=== PATIENT | female | born 1955 | race Caucasian/White ===

== ENCOUNTER 2018-02-14 18:47 | Emergency (ER) | payer MEDICARE ==
[~2018-02-14] VITALS: Ht 160 cm; Wt 72.6 kg
[~2018-02-14 18:47] MED LIST: AMIT50; ASCO500 PO; ASPI325; B Complex #11 EACH PO; BIOGEST PO; BUSP5 PO; CARV25; CHOL10002 PO; CIPR500 PO; COLE625; CRUTCH2 USE; CYCL10 PO; Calcium Magnes1 EACH PO; DULO30 PO; DULO60 PO; ERGO400 PO; ERYT.5TO OS; ESTR.625 PO; ESTR.9; FISH OIL 1,2001 EACH PO; FISH1000 PO; GABA300 PO; GABA600 PO; HYDACE5 PO; Humalog100 UNIT/1 SC; INSULANI SC; INSULIN PUMP; KETO.5OPSO LEFTEYE; LEVSOD75 PO; LORA1 PO; MAGCHL64ER PO; METF500 PO; METR500 PO; NAPR500 PO; NEBI10 PO; Norco 10-325 T1 EACH PO; OMEP20ER PO; OXYACE5T PO; OXYC5; Omeprazole20 M1 PO; PENNAL50 PO; PRAV20 PO; PREG75 PO; QUIN10 PO; QUIN5; QUIN5 PO; RANI150; RXLORA1 PO; TUMS200 MG PO; Ultram50 MG PO; VENL75ER; VITAMIN B122500 MC1 PO
[2018-02-14 19:13] LABS: PCO2 Venous 36.8 mmHg (38-42); PO2 Venous 66.2 mmHg (38-42)
[2018-02-14 19:14] LABS: BASOPHILS ABSOLUTE AUTO 0.06 K/mm3 (0.00-0.23); BASOPHILS PERCENT AUTO 1 % (0-2); EOSINOPHILS ABSOLUTE AUTO 0.14 K/mm3 (0.00-0.68); EOSINOPHILS PERCENT AUTO 1 % (0-6); Hematocrit 41.4 % (33.0-51.0); Hemoglobin 13.8 g/dL (11.5-16.0); IMMATURE GRAN ABSOLUTE AUTO 0.04 K/mm3 (0.00-0.10); IMMATURE GRAN PERCENT AUTO 0 % (0-1); LYMPHOCYTES ABSOLUTE AUTO 1.97 K/mm3 (0.84-5.20); LYMPHOCYTES PERCENT AUTO 19 % (21-46); MONOCYTES ABSOLUTE AUTO 0.59 K/mm3 (0.16-1.47); MONOCYTES PERCENT AUTO 6 % (4-13); Mean Corpuscular HGB 29.9 pg (26.0-34.0); Mean Corpuscular HGB Conc 33.3 g/dL (31.5-36.5); Mean Corpuscular Volume 90 fL (80-100); Mean Platelet Volume 11.1 fL (9.1-12.4); NEUTROPHILS ABSOLUTE AUTO 7.71 K/mm3 (1.96-9.15); NEUTROPHILS PERCENT AUTO 73 % (41-73); Platelet Count 267 K/mm3 (150-400); RDW Coefficient Variation 12.5 % (11.7-14.2); RDW Standard Deviation 41.1 fL (35.1-46.3); Red Blood Cell Count 4.61 M/mm3 (3.80-5.20); White Blood Cell Count 10.51 K/mm3 (4.00-11.30)
[2018-02-14 19:31] LABS: Albumin, Blood 4.1 g/dL (3.4-5.0); Bilirubin, Total 0.6 mg/dL (0.1-1.0); Bun/Creatinine Ratio 20.2 (12.0-20.0); Calcium, Blood 9.6 mg/dL (8.5-10.1); Creatinine, Blood 1.04 mg/dL (0.40-1.00); Potassium, Blood 4.3 mmol/L (3.5-5.5); Total Protein, Blood 8.1 g/dL (6.4-8.2)
[2018-02-14] MEDS ORDERED: Bystolic20 MG PO (20:30)
[2018-02-14 21:05] LABS: Source, Urine Clean Catch
[2018-02-14 21:10] LABS: Bilirubin, Urine Neg (Neg); Blood, Urine Neg (Neg); Glucose Qualitative, Urine 4+ (Neg); Ketones, Urine Neg (Neg); Leukocyte Esterase, Urine Neg (Neg); Nitrite, Urine Neg (Neg); Protein, Urine Neg (Neg); Specific Gravity, Urine 1.005 (1.003-1.022); Urobilinogen, Urine NORM (Normal); pH, Urine 6.5 (5.0-8.0)
[2018-02-14 21:16] LABS: Appearance, Urine Clear (Clear); Color, Urine Yellow (P-Yellow)
== END 2018-02-14 23:05 | disposition home or self-care (01) ==
LOC: ER 18:47
PROVIDERS: Physician Assistant
DX: E11.65 Type 2 diabetes mellitus with hyperglycemia (principal); Z88.6 Allergy status to analgesic agent; Z88.2 Allergy status to sulfonamides; Z88.5 Allergy status to narcotic agent; Z91.040 Latex allergy status; Z79.899 Other long term (current) drug therapy; Z79.4 Long term (current) use of insulin
CPT/HCPCS: 36415; 80053; 81003; 82803; 82947; 85025; 96374; 99284; J2405; J7030

== ENCOUNTER 2018-05-13 22:28 | Emergency (ER) | payer MEDICARE ==
[~2018-05-13 22:28] MED LIST changes: +Bystolic20 MG PO
== END 2018-05-13 22:50 | disposition left against medical advice (07) ==
LOC: ER 22:28
DX: Z53.21 Procedure and treatment not carried out due to patient leaving prior to being seen by health care provider (principal)

== ENCOUNTER → 2021-07-15 | Outpatient (CLI) | payer MEDICARE, OTHER ==
[~2021-07-15] MED LIST changes: +ATEN50 PO; +ATOR80 PO; +Buspirone HCl15 MG PO; +GALZIN25 MG PO; +MAGNESIUM OXID500 MG PO; +Norco 5-325 Ta1 EACH PO
== END | disposition home or self-care (01) ==
LOC: LAB 16:00 → LAB SHORT 16:00
DX: B34.9 Viral infection, unspecified (principal)
CPT/HCPCS: 87081

== ENCOUNTER 2021-09-13 09:15 | Emergency (ER) | payer MEDICARE, OTHER ==
[~2021-09-13] VITALS: Ht 154.9 cm; Wt 77.1 kg
[2021-09-13 10:29] LABS: Source, Urine Clean Catch
[2021-09-13 10:35] LABS: BASOPHILS ABSOLUTE AUTO 0.07 K/mm3 (0.00-0.23); BASOPHILS PERCENT AUTO 1 % (0-2); Base Excess Venous 4.6 mmol/L; Bicarbonate Venous 27.6 mmol/L (24.0-30.0); EOSINOPHILS PERCENT AUTO 3 % (0-6); Hematocrit 38.6 % (33.0-51.0); Hemoglobin 12.6 g/dL (11.5-16.0); IMMATURE GRAN ABSOLUTE AUTO 0.04 K/mm3 (0.00-0.10); IMMATURE GRAN PERCENT AUTO 0 % (0-1); LYMPHOCYTES ABSOLUTE AUTO 2.54 K/mm3 (0.84-5.20); LYMPHOCYTES PERCENT AUTO 24 % (21-46); MONOCYTES PERCENT AUTO 6 % (4-13); Mean Corpuscular HGB 29.1 pg (26.0-34.0); Mean Corpuscular HGB Conc 32.6 g/dL (31.5-36.5); Mean Corpuscular Volume 89 fL (80-100); Mean Platelet Volume 11.1 fL (9.1-12.4); NEUTROPHILS ABSOLUTE AUTO 6.95 K/mm3 (1.96-9.15); NEUTROPHILS PERCENT AUTO 66 % (41-73); PCO2 Venous 48.4 mmHg (38-42); PO2 Venous 63.5 mmHg (38-42); Platelet Count 250 K/mm3 (150-400); RDW Coefficient Variation 12.8 % (11.7-14.2); RDW Standard Deviation 42.1 fL (35.1-46.3); Red Blood Cell Count 4.33 M/mm3 (3.80-5.20); pH Blood Venous 7.39 (7.34-7.37)
[2021-09-13 10:38] LABS: Appearance, Urine Clear (Clear); Bilirubin, Urine Neg (Neg); Blood, Urine Neg (Neg); Color, Urine Yellow (P-Yellow); Glucose Qualitative, Urine 4+ (Neg); Ketones, Urine Neg (Neg); Leukocyte Esterase, Urine Neg (Neg); Nitrite, Urine Neg (Neg); Protein, Urine Neg (Neg); Specific Gravity, Urine 1.005 (1.003-1.022); Urobilinogen, Urine NORM (Normal); pH, Urine 6.5 (5.0-8.0)
[2021-09-13 11:01] LABS: Alanine Aminotransfer (ALT/SGP 49 U/L (12-78); Albumin, Blood 3.5 g/dL (3.4-5.0); Alk Phos 110 U/L (50-136); Anion Gap 6 mmol/L (6-16); Aspartate Aminotrans (AST/SGOT 31 U/L (12-37); Beta-hydroxybutyrate 1.2 mg/dL (0.2-2.8); Bilirubin, Total 0.7 mg/dL (0.1-1.0); Blood Urea Nitrogen 21 mg/dL (8-24); Bun/Creatinine Ratio 23.6 (12.0-20.0); CO2, Blood 29 mmol/L (21-32); Calcium, Blood 9.9 mg/dL (8.5-10.1); Chloride, Blood 97 mmol/L (98-108); Creatinine, Blood 0.89 mg/dL (0.40-1.00); Globulin, Blood 3.6 g/dL (2.2-4.0); Glomerular Filtration Rate >60 (60-); Glucose, Blood 392 mg/dL (70-99); Potassium, Blood 4.5 mmol/L (3.5-5.5); Sodium, Blood 132 mmol/L (136-145); Total Protein, Blood 7.1 g/dL (6.4-8.2)
== END 2021-09-13 11:37 | disposition home or self-care (01) ==
LOC: ER 09:15
PROVIDERS: Physician Assistant
DX: E11.65 Type 2 diabetes mellitus with hyperglycemia (principal); Z88.6 Allergy status to analgesic agent; Z88.2 Allergy status to sulfonamides; Z88.5 Allergy status to narcotic agent; Z91.040 Latex allergy status; Z79.899 Other long term (current) drug therapy; Z79.4 Long term (current) use of insulin; G47.30 Sleep apnea, unspecified; I10 Essential (primary) hypertension
CPT/HCPCS: 36415; 80053; 81003; 82010; 82803; 82947; 85025; 93005; 93010; 96374; 99285-25; J2405; J7030

== ENCOUNTER → 2021-11-23 | Outpatient (CLI) | payer MEDICARE, OTHER ==
[2021-11-23 16:29] LABS: Sodium, Urine 53 mmol/L (20-110)
[2021-11-23 16:33] LABS: Microalbumin, Urine Quant. <5.000 mg/L (0.000-20.000); Protein, Urine Quantitative <5.0 mg/dL (0.0-11.9)
== END | disposition home or self-care (01) ==
LOC: LAB SHORT 14:26 → LAB FUT 11-21 13:10
PROVIDERS: Internal Medicine Nephrology
DX: N18.30 Chronic kidney disease, stage 3 unspecified (principal); D63.1 Anemia in chronic kidney disease; N25.81 Secondary hyperparathyroidism of renal origin; E55.9 Vitamin D deficiency, unspecified; E78.00 Pure hypercholesterolemia, unspecified; R76.9 Abnormal immunological finding in serum, unspecified; R94.5 Abnormal results of liver function studies; R94.6 Abnormal results of thyroid function studies; D51.8 Other vitamin B12 deficiency anemias; D52.8 Other folate deficiency anemias; D50.9 Iron deficiency anemia, unspecified
CPT/HCPCS: 81050; 82043; 84156; 84300

== ENCOUNTER 2022-03-15 06:21 | Day surgery (SDC) | payer MEDICARE, OTHER ==
[~2022-03-15] VITALS: Ht 157.5 cm; Wt 79.1 kg
[~2022-03-15 06:21] MED LIST changes: +Crestor20 MG PO; +LATA.005SO BOTHEYES
[2022-03-20] MEDS ORDERED: GABA300 PO (11:25)
[2022-03-20] MEDS ORDERED: QUIN10 PO (11:25)
== END 2022-03-15 08:09 | disposition home or self-care (01) ==
LOC: ORSCSDS 06:21
PROVIDERS: Ophthalmology
PROC: 08RJ3JZ Replacement of Right Lens with Synthetic Substitute, Percutaneous Approach (ICD-10-PCS; principal; 2022-03-15 07:30)
DX: H25.11 Age-related nuclear cataract, right eye (principal); E11.9 Type 2 diabetes mellitus without complications; K21.9 Gastro-esophageal reflux disease without esophagitis; E78.5 Hyperlipidemia, unspecified; E03.9 Hypothyroidism, unspecified; H40.9 Unspecified glaucoma; Z79.4 Long term (current) use of insulin; Z79.899 Other long term (current) drug therapy
CPT/HCPCS: 82947; J2001; J2250; J3010; J3301; J7040; V2632

== ENCOUNTER 2022-03-29 06:24 | Day surgery (SDC) | payer MEDICARE, OTHER ==
[~2022-03-29] VITALS: Ht 157.5 cm; Wt 79.4 kg
--- NOTE | 2022-03-29 06:45 | NUR ---
03/29/22 0645 Alicia Scanlon @ 0636, MARÍA ELENA @ 0646
== END 2022-03-29 08:10 | disposition home or self-care (01) ==
LOC: ORSCSDS 06:24
PROVIDERS: Ophthalmology
PROC: 08RK3JZ Replacement of Left Lens with Synthetic Substitute, Percutaneous Approach (ICD-10-PCS; principal; 2022-03-29 07:30)
DX: H25.12 Age-related nuclear cataract, left eye (principal); Z96.1 Presence of intraocular lens; I10 Essential (primary) hypertension; I42.9 Cardiomyopathy, unspecified; K21.9 Gastro-esophageal reflux disease without esophagitis; E10.9 Type 1 diabetes mellitus without complications; Z96.41 Presence of insulin pump (external) (internal); Z79.4 Long term (current) use of insulin; E78.5 Hyperlipidemia, unspecified; Z79.899 Other long term (current) drug therapy
CPT/HCPCS: 82947; J2001; J2250; J3010; J3301; J7040; V2632

== ENCOUNTER 2023-02-13 14:19 | Inpatient (IN) | payer MEDICARE, OTHER ==
[~2023-02-13] VITALS: Ht 157.5 cm; Wt 84.3 kg
[2023-02-13] VITALS (17 sets, daily range): BP systolic 89–121; BP diastolic 48–82
[2023-02-13 14:57] LABS: Base Excess Venous -2.1 mmol/L; Bicarbonate Venous 22.3 mmol/L (24.0-30.0); PCO2 Venous 42.8 mmHg (38-42); pH Blood Venous 7.35 (7.34-7.37)
[2023-02-13 15:09] LABS: BASOPHILS ABSOLUTE AUTO 0.03 K/mm3 (0.00-0.23); BASOPHILS PERCENT AUTO 0 % (0-2); EOSINOPHILS ABSOLUTE AUTO 0.01 K/mm3 (0.00-0.68); EOSINOPHILS PERCENT AUTO 0 % (0-6); IMMATURE GRAN ABSOLUTE AUTO 0.06 K/mm3 (0.00-0.10); IMMATURE GRAN PERCENT AUTO 1 % (0-1); LYMPHOCYTES ABSOLUTE AUTO 0.74 K/mm3 (0.84-5.20); LYMPHOCYTES PERCENT AUTO 7 % (21-46); MONOCYTES ABSOLUTE AUTO 0.68 K/mm3 (0.16-1.47); MONOCYTES PERCENT AUTO 6 % (4-13); Mean Corpuscular HGB 30.2 pg (26.0-34.0); Mean Corpuscular HGB Conc 32.4 g/dL (31.5-36.5); Mean Corpuscular Volume 93 fL (80-100); Mean Platelet Volume 11.7 fL (9.1-12.4); NEUTROPHILS ABSOLUTE AUTO 9.34 K/mm3 (1.96-9.15); NEUTROPHILS PERCENT AUTO 86 % (41-73); Platelet Count 215 K/mm3 (150-400); RDW Coefficient Variation 13.2 % (11.7-14.2); RDW Standard Deviation 45.1 fL (35.1-46.3); Red Blood Cell Count 3.98 M/mm3 (3.80-5.20); White Blood Cell Count 10.86 K/mm3 (4.00-11.30)
[2023-02-13] MEDS ORDERED: LEVO-T50 MC1 PO (15:25)
[2023-02-13] MEDS ORDERED: Prinivil10 MG PO (15:26)
[2023-02-13] MEDS ORDERED: HUMALOG100 UNIT/1 (15:28)
[2023-02-13] MEDS ORDERED: PRAZOSIN HCL1 M2 PO (15:28)
[2023-02-13] MEDS ORDERED: Buspirone HCl15 MG PO (15:30)
[2023-02-13 15:40] LABS: Albumin, Blood 3.8 g/dL (3.4-5.0); Albumin/Globulin Ratio 1.2 (0.8-1.8); Bilirubin, Total 0.9 mg/dL (0.1-1.0); Bun/Creatinine Ratio 23.7 (12.0-20.0); Calcium, Blood 9.4 mg/dL (8.5-10.1); Creatinine, Blood 1.31 mg/dL (0.40-1.00); Globulin, Blood 3.3 g/dL (2.2-4.0); Potassium, Blood 6.3 mmol/L (3.5-5.5); Total Protein, Blood 7.1 g/dL (6.4-8.2)
[2023-02-13 16:58] LABS: Osmolality, Serum 321 mos/KG (275-300)
[2023-02-13 17:16] LABS: Source, Urine Clean Catch
[2023-02-13 17:16] LABS: Glucose, Blood 811 mg/dL (70-99)
[2023-02-13 17:24] LABS: Appearance, Urine Clear (Clear); Bilirubin, Urine Neg (Neg); Blood, Urine Neg (Neg); Color, Urine Yellow (P-Yellow); Glucose Qualitative, Urine 4+ (Neg); Ketones, Urine 1+ (Neg); Leukocyte Esterase, Urine Neg (Neg); Nitrite, Urine Neg (Neg); Protein, Urine 1+ (Neg); Specific Gravity, Urine 1.005 (1.003-1.022); Urobilinogen, Urine NORM (Normal)
--- NOTE | 2023-02-13 18:30 | NUR ---
RECEIVED REPORT FROM ED NURSE, ADRIANNE. WILL AWAIT PATIENT TRANSFER TO ICU10.
--- NOTE | 2023-02-13 18:44 | NUR ---
PATIENT ARRIVES TO ICU10 WITH ED NURSE ADRIANNE. PATIENT IS A&OX4. ABLE TO AMBULATE FROM ED BED TO ICU BED. DENIES N/V AT THIS TIME. BP 121/61, SR WITH HR OF 97. SPO2 AT 95% ON RA. RR OF 19. IV TO RAC AND LFA ARE PATENT WITH BLOOD RETURN.
[2023-02-13 19:45] LABS: Bun/Creatinine Ratio 25.6 (12.0-20.0); Calcium, Blood 13.3 mg/dL (8.5-10.1); Creatinine, Blood 1.25 mg/dL (0.40-1.00); Potassium, Blood 4.9 mmol/L (3.5-5.5)
--- NOTE | 2023-02-13 20:00 | NUR ---
ASSUMPTION OF CARE NOTE RECENT ADMIT FROM ED FOR HYPERGLYCEMIA D/T MALFUNCTIONING INSULIN PUMP. CURRENTLY ON INSULIN GTT AT 5UNITS/HR WITH Q1 CBGS. A&OX4, POLITE AND FOLLOWS COMMANDS. HR IN 70S WITH BUNDLE BRANCH BLOCK. ON RA WHEN AWAKE BUT WEARS CPAP AT NIGHT FOR HIRAL. NO CURRENT REPORTS OF NAUSEA OR VOMITTING. NURSE ASSIST WITH AMBULATION FOR LINE MANAGEMENT.
[2023-02-13 20:06] LABS: Adenovirus Not Detected (NOT DETECT); Bordetella pertussis Not Detected (NOT DETECT); Chlamydophila pneumoniae Not Detected (NOT DETECT); Coronavirus 229E Not Detected (NOT DETECT); Coronavirus HKU1 Not Detected (NOT DETECT); Coronavirus NL63 Not Detected (NOT DETECT); Coronavirus OC43 Not Detected (NOT DETECT); Human Metapneumovirus Not Detected (NOT DETECT); Human Rhinovirus/Enterovirus Not Detected (NOT DETECT); Influenza A/2009-H1 Not Detected (NOT DETECT); Influenza A/H1 Not Detected (NOT DETECT); Influenza A/H3 Not Detected (NOT DETECT); Influenza B Not Detected (NOT DETECT); Mycoplasma pneumoniae Not Detected (NOT DETECT); Parainfluenza Virus 1 Not Detected (NOT DETECT); Parainfluenza Virus 2 Not Detected (NOT DETECT); Parainfluenza Virus 3 Not Detected (NOT DETECT); Parainfluenza Virus 4 Not Detected (NOT DETECT); Respiratory Syncytial Virus Not Detected (NOT DETECT); SARS-Cov-2 (COVID-19), BioFire Not Detected (NOT DETECT)
[2023-02-13 23:19] LABS: Creatinine, Blood 1.2 mg/dL (0.40-1.00); Potassium, Blood 4.6 mmol/L (3.5-5.5)
[2023-02-13 23:22] LABS: Calcium, Blood 9.2 mg/dL (8.5-10.1)
[2023-02-14] VITALS (13 sets, daily range): BP systolic 89–108; BP diastolic 47–92
--- NOTE | 2023-02-14 01:30 | NUR ---
UPDATE LATEST CBG 206. MD NOTIFIED. ORDERED TO STOP INSULIN GTT AND PLACE ORDERS FOR MEDIUM SLIDING SCALE AND CBG CHECKS ACHS. IN ADDITION SBPS IN 90S WITH MAPS FROM 60-70. ORDERED TO GIVE BOLUS OF NS 500MLS.
[2023-02-14 02:35] LABS: BASOPHILS ABSOLUTE AUTO 0.03 K/mm3 (0.00-0.23); BASOPHILS PERCENT AUTO 0 % (0-2); EOSINOPHILS ABSOLUTE AUTO 0.04 K/mm3 (0.00-0.68); EOSINOPHILS PERCENT AUTO 0 % (0-6); Hemoglobin 9.5 g/dL (11.5-16.0); IMMATURE GRAN ABSOLUTE AUTO 0.03 K/mm3 (0.00-0.10); IMMATURE GRAN PERCENT AUTO 0 % (0-1); LYMPHOCYTES ABSOLUTE AUTO 2.08 K/mm3 (0.84-5.20); LYMPHOCYTES PERCENT AUTO 23 % (21-46); MONOCYTES ABSOLUTE AUTO 0.99 K/mm3 (0.16-1.47); MONOCYTES PERCENT AUTO 11 % (4-13); Mean Corpuscular HGB 30.3 pg (26.0-34.0); Mean Corpuscular HGB Conc 33.9 g/dL (31.5-36.5); Mean Corpuscular Volume 89 fL (80-100); NEUTROPHILS PERCENT AUTO 65 % (41-73); Platelet Count 174 K/mm3 (150-400); RDW Coefficient Variation 13.2 % (11.7-14.2); RDW Standard Deviation 43.1 fL (35.1-46.3); Red Blood Cell Count 3.14 M/mm3 (3.80-5.20); White Blood Cell Count 9.07 K/mm3 (4.00-11.30)
[2023-02-14 03:09] LABS: Bun/Creatinine Ratio 25.2 (12.0-20.0); Calcium, Blood 9.3 mg/dL (8.5-10.1); Creatinine, Blood 1.27 mg/dL (0.40-1.00); Magnesium, Blood 1.9 mg/dL (1.6-2.4); Potassium, Blood 4.6 mmol/L (3.5-5.5)
--- NOTE | 2023-02-14 05:25 | NUR ---
UPDATE CALLED DR POMPA REGARDING PT DOING WELL OFF THE INSULIN GTT AND AM LABS IMPROVED. NEW ORDERS PROVIDED TO CHANGE STATUS; STOP FLUIDS; START DIET; AND START LONG ACTING INSULIN.
--- NOTE | 2023-02-14 06:32 | NUR ---
SHIFT SUMMARY ABLE TO COME OFF OF INSULIN GTT AROUND 0130. LAST CBG AT 0230 180S. 30 UNITS OF LONG ACTING INSULIN GIVEN. PRESSURES SOFTER OVERNIGHT WITH 1 500ML BOLUS OF NS GIVEN. MAPS OVER 70S NOW THAT AWAKE. PT NOW MEDICAL FLOOR STATUS NO TELE. TO BE TRANSFERED THIS AM
[2023-02-14 07:43] LABS: Calcium, Blood 9.2 mg/dL (8.5-10.1); Creatinine, Blood 1.32 mg/dL (0.40-1.00); Potassium, Blood 5.5 mmol/L (3.5-5.5)
--- NOTE | 2023-02-14 07:50 | NUR ---
ASSUMED CARE OF PATIENT AND RECEIVED REPORT FROM PRODUCT REPRESENTATIVE NURSE. PATIENT IS SLEEPING AND APPEARS COMFORTABLE. NOTIFIED OF TRANSFER TO MED FLOOR. WILL ASSESS AND TRANSFER.
--- NOTE | 2023-02-14 10:00 | NUR ---
pt brought to 303 from icu, she is brought via wheelchair, a/ox4, pleasant and cooperative with care, follows commands well, transfered to bed indep, agree with prior assessment, pt a bit sleepy, oriented to room layout and call system, call light in reach.
--- NOTE | 2023-02-14 10:00 | NUR ---
pt arrived to 303 via wheelchair from ICU, a/ox4 pleasant and cooperative with care, a bit sleepy, agree with previous nurses assessment, transfered herself to bed, up indep, oriented to room layout and call system, call light in reach.
--- NOTE | 2023-02-14 10:36 | NUR ---
ASSUMED CARE OF PT AT 0715 BEDSIDE REPORT RECEIVED FROM DMITRY RYAN AND DMITRY CORTEZ. PT APPEARS TO BE RESTING COMFORTABLY. HAS BEEN OFF INSULIN DRIP AND IVF SINCE 0130. ALL ASSESSMENT IS WNL, PT IS MEDICAL STATUS (NO TELE ORDERED). PIV X2 SL. AM POC BG IS > 400, COVERED WITH REGULAR INSULIN S/S PER ORDERS. PT HAS NOT HAD ANY S/S COVERAGE SINCE OFF INSULIN DRIP, ONLY LONG ACTING INSULIN THIS AM. CALLED REPORT TO DMITRY BULL ON MEDICAL FLOOR. PT TRANSFERRED VIA W/C BY RN TO ROOM 303. SISTER REMINGTON NOTIFIED OF TRANSFER, PT TO NOTIFY DAUGHTER OF TRANSFER. PT HAS OWN CELL PHONE, NO OTHER BELONGINGS, SHE REPORTS SHE SENT THEM ALL HOME WITH HER SON.
--- NOTE | 2023-02-14 14:28 | NUR ---
pt up ad sha in room, set her up for a shower, she left the door unlocked as asked, doing ok. call light in reach.
--- NOTE | 2023-02-14 16:34 | NUR ---
Pt. is awake in her bed and welcomes my visit. Pts. daughter is present. Pt. is pleasant but unsettled by whatever trigger her insulin pump to fail. Listen with empathy and a calming presence. Daughter excused herself to allow Pt. to have some privacy. Pt. displayed evidence of being engaged and aware, and that she is a woman of chelsi whose spiritual support comes from the family. Again listen with empathy and a pastoral presence. Pt. displays evidence of being comforted by this visit. Prayed with Pt. Pt. verbalized gratitude for the spiritual care visit, and welcomed this automation control technician to return.
--- NOTE | 2023-02-14 18:31 | NUR ---
SHIFT SUMMARY THIS RN ASSUMED CARE AT 1600. PATIENT HAS HAD NO ACUTE EVENTS THIS SHIFT. VITAL SIGNS REVIEWED.
[2023-02-15 04:34] VITALS: BP 139/69
--- NOTE | 2023-02-15 04:38 | NUR ---
SHIFT SUMMERY. PT RESTING IN BED WITH CPAP ON. PT IS ALERT AND ORIENTED, SEEMS TO BE RESTING WELL. PT USING CALL LIGHT FOR NEEDS.
[2023-02-15 05:06] LABS: Hematocrit 32.2 % (33.0-51.0); Hemoglobin 10.8 g/dL (11.5-16.0); Mean Corpuscular HGB 29.6 pg (26.0-34.0); Mean Corpuscular HGB Conc 33.5 g/dL (31.5-36.5); Mean Corpuscular Volume 88 fL (80-100); Mean Platelet Volume 10.8 fL (9.1-12.4); Platelet Count 195 K/mm3 (150-400); RDW Coefficient Variation 13.1 % (11.7-14.2); RDW Standard Deviation 42.7 fL (35.1-46.3); Red Blood Cell Count 3.65 M/mm3 (3.80-5.20); White Blood Cell Count 6.91 K/mm3 (4.00-11.30)
--- NOTE | 2023-02-15 06:51 | NUR ---
CALL FROM LAB ABOUT INCONSISTACYS OF LAB VALUSES ONE OF WHICH WAS PTS BLOOD SUGAR 64. HAD CERTIFIED HEARING INSTRUMENT DISPENSER RECHECK CBG AND IT WAS 48, PT STATED SHE HAD NOT FELT ANY DIFFRENT AND WAS NOT SYPTOMATIC. PT GIVEN AN ENSURE TO DRINK . PTS CBG RETAKEN AND WAS 80 PT RESTING IN BED CALL LIGHT IN REACH. PT DID MENTION THAT SHE HAS HAS A SORE THROAT AND WAS GIVEN SOME HOT TEA FOR COMFORT.
[2023-02-15 06:55] LABS: Bun/Creatinine Ratio 22.8 (12.0-20.0); Creatinine, Blood 1.14 mg/dL (0.40-1.00); Potassium, Blood 3.9 mmol/L (3.5-5.5)
[2023-02-15 07:37] VITALS: BP 132/66
--- NOTE | 2023-02-15 09:00 | NUR ---
pt laying in bed awake a/ox4, pleasant and cooperative with care, follows commands well, denies pain, states she slept ok last night, lungs are clear t/o, resp even and unlabored, no cough noted, uses cpap with sleep, hrr, no edema noted, piv is clear and patent, btx4, abd flat soft nontender, voids without diff, skin c/w/d, maew, kaylyn, call light in reach.
[2023-02-15] MEDS ORDERED: BASAGLAR K100 UNIT/1 SC (12:52)
[2023-02-15] MEDS ORDERED: HUMALOG JU100 UNIT/2 SC (12:52)
--- NOTE | 2023-02-15 13:13 | NUR ---
Notified of blood glucose of 318 this afternoon, she changed her from low s/s to med s/s, and increased her long acting to 45 units. will discharge home. call light in reach.
--- NOTE | 2023-02-15 13:30 | NUR ---
pt has been discharged to home, did some diabetic education, had dietary speak with her about managing dm. she was very receptive, iv was removed intact, went over instructions with her and gave her a s/s, she verbalized understanding, new meds were faxed to her pharmacy. left via wheelchair with her family in attendence.
== END 2023-02-15 14:11 | DRG 638 ==
LOC: ER 14:19 → ICUW 14:20 → MEDS 02-14 09:56 → ENPENDDIS 02-15 12:15 → MEDS 02-15 14:11
PROVIDERS: Emergency Medicine; Family Medicine Adult Medicine; Nurse Practitioner Acute Care; Student in an Organized Health Care Education/Training Program; ADMIT Hospitalist
PROC: 5A09357 Assistance with Respiratory Ventilation, Less than 24 Consecutive Hours, Continuous Positive Airway Pressure (ICD-10-PCS; principal; 2023-02-14)
DX: E10.69 Type 1 diabetes mellitus with other specified complication (principal); E87.0 Hyperosmolality and hypernatremia; I42.9 Cardiomyopathy, unspecified; N17.9 Acute kidney failure, unspecified; F41.8 Other specified anxiety disorders; K21.9 Gastro-esophageal reflux disease without esophagitis; E86.0 Dehydration; E03.9 Hypothyroidism, unspecified; G47.33 Obstructive sleep apnea (adult) (pediatric); E10.65 Type 1 diabetes mellitus with hyperglycemia; E87.5 Hyperkalemia; M79.7 Fibromyalgia; E06.3 Autoimmune thyroiditis; I11.0 Hypertensive heart disease with heart failure; F41.9 Anxiety disorder, unspecified; I50.9 Heart failure, unspecified; Z20.822 Contact with and (suspected) exposure to COVID-19; Z90.5 Acquired absence of kidney; Z98.890 Other specified postprocedural states; Z88.2 Allergy status to sulfonamides; Z88.8 Allergy status to other drugs, medicaments and biological substances; Z88.5 Allergy status to narcotic agent; Z91.040 Latex allergy status; Z79.899 Other long term (current) drug therapy; Z79.02 Long term (current) use of antithrombotics/antiplatelets; Z79.4 Long term (current) use of insulin; Z90.710 Acquired absence of both cervix and uterus
CPT/HCPCS: 0202U; 36415; 71046; 80048; 80053; 82010; 82803; 82947; 83735; 83930; 84484; 85025; 85027; 93005; 93010; 94660; 94762; 96361; 96365; 96372; 96375; 99285-25; A9270; G0378; J1644; J1815; J2405; J7030; J7040; J7120; P9612

== ENCOUNTER 2023-08-30 14:44 | Inpatient (IN) | payer MEDICARE, OTHER ==
[~2023-08-30] VITALS: Ht 154.9 cm; Wt 82.6 kg
[~2023-08-30 14:44] MED LIST changes: +BASAGLAR K100 UNIT/1 SC; +HUMALOG JU100 UNIT/2 SC; +HUMALOG100 UNIT/1; +LEVO-T50 MC1 PO; +PRAZOSIN HCL1 M2 PO; +Prinivil10 MG PO
[2023-08-30 15:09] LABS: Base Excess Venous -4.2 mmol/L; PCO2 Venous 42.2 mmHg (38-42); pH Blood Venous 7.32 (7.34-7.37)
[2023-08-30 15:15] LABS: BASOPHILS ABSOLUTE AUTO 0.03 K/mm3 (0.00-0.23); BASOPHILS PERCENT AUTO 0 % (0-2); EOSINOPHILS ABSOLUTE AUTO 0.03 K/mm3 (0.00-0.68); EOSINOPHILS PERCENT AUTO 0 % (0-6); Hematocrit 34.5 % (33.0-51.0); Hemoglobin 11.2 g/dL (11.5-16.0); IMMATURE GRAN ABSOLUTE AUTO 0.04 K/mm3 (0.00-0.10); IMMATURE GRAN PERCENT AUTO 0 % (0-1); LYMPHOCYTES ABSOLUTE AUTO 0.87 K/mm3 (0.84-5.20); LYMPHOCYTES PERCENT AUTO 8 % (21-46); MONOCYTES ABSOLUTE AUTO 0.37 K/mm3 (0.16-1.47); MONOCYTES PERCENT AUTO 4 % (4-13); Mean Corpuscular HGB 29.6 pg (26.0-34.0); Mean Corpuscular HGB Conc 32.5 g/dL (31.5-36.5); Mean Corpuscular Volume 91 fL (80-100); Mean Platelet Volume 11.6 fL (9.1-12.4); NEUTROPHILS ABSOLUTE AUTO 9.18 K/mm3 (1.96-9.15); NEUTROPHILS PERCENT AUTO 87 % (41-73); Platelet Count 169 K/mm3 (150-400); RDW Coefficient Variation 13.1 % (11.7-14.2); RDW Standard Deviation 44.3 fL (35.1-46.3); Red Blood Cell Count 3.78 M/mm3 (3.80-5.20); White Blood Cell Count 10.52 K/mm3 (4.00-11.30)
[2023-08-30 15:58] LABS: Albumin, Blood 3.7 g/dL (3.4-5.0); Albumin/Globulin Ratio 1.2 (0.8-1.8); Bilirubin, Total 0.7 mg/dL (0.1-1.0); Bun/Creatinine Ratio 21.6 (12.0-20.0); Calcium, Blood 8.5 mg/dL (8.5-10.1); Creatinine, Blood 1.02 mg/dL (0.40-1.00); Globulin, Blood 3.1 g/dL (2.2-4.0); Potassium, Blood 5.4 mmol/L (3.5-5.5); Total Protein, Blood 6.8 g/dL (6.4-8.2)
[2023-08-30 18:19] LABS: Influenza A, PCR NEGATIVE (NEGATIVE); Influenza B, PCR NEGATIVE (NEGATIVE); Resp Syncytial Virus, PCR NEGATIVE (NEGATIVE); SARS-Cov-2 (COVID-19) PCR, MMC NEGATIVE (NEGATIVE)
[2023-08-30 19:02] LABS: Bun/Creatinine Ratio 23.6 (12.0-20.0); Calcium, Blood 7.5 mg/dL (8.5-10.1); Creatinine, Blood 1.1 mg/dL (0.40-1.00); Potassium, Blood 4.8 mmol/L (3.5-5.5)
[2023-08-30 20:04] VITALS: BP 105/50
[2023-08-30] MEDS ORDERED: PREG75 PO (20:15)
[2023-08-30 22:30] LABS: Bun/Creatinine Ratio 23.7 (12.0-20.0); Calcium, Blood 7.4 mg/dL (8.5-10.1); Creatinine, Blood 1.18 mg/dL (0.40-1.00); Potassium, Blood 5.8 mmol/L (3.5-5.5)
--- NOTE | 2023-08-30 22:41 | NUR ---
DEXCOM PT ARRIVED TO FLOOR WITH OWN INSULIN PUMP. HOSPITALIST CALLED TO VERIFY ORDER BLOOD GLUCOSE WAS STILL IN 400S UPON ARRIVAL. HOSPITALIST WANTS PT TO USE OWN PUMP T/O NOC TO MAKE SURE THAT SHE IS DOSING HERSELF CORRECTLY. AT 2020, PT ASKED FOR SNACK, CARB COUNTED AND THOUGHT SHE ADMINISTERED 8 UNITS. AT 2 HOUR BLOOD SUGAR CHECK, READING WAS ABOVE 500. LAB THERESA BLOOD AND SHOWED 641 BLOOD GLUCOSE. PT LOOKED AT MACHINE AND SHOWED SHE WAS NOT GIVEN BOLUS LIKE SHE THOUGHT. PT THEN GAVE HER SELF 8 UNITS PER MACHINE ORDERS AND THEN ANOTHER 5 UNITS DUE TO MACHINE LOCKING OUT AT 8 UNITS. CHARGE NURSE NOTIFED. PT EDUCATED ABOUT GOING TO PCP AND LEARNING MORE ABOUT MACHINE.
[2023-08-30 23:29] VITALS: BP 93/49
[2023-08-31] VITALS (71 sets, daily range): BP systolic 72–139; BP diastolic 36–100
[2023-08-31 00:53] LABS: Glucose, Blood 689 mg/dL (70-99)
--- NOTE | 2023-08-31 01:12 | NUR ---
IN HOUSE TRANSFER AT MIDNIGHT VITAL CHECK PT MAPS WERE CONSISTNATLY IN THE 60S. PT BLOOD GLUCOSE AGAIN UNREADABLE AND BLOOD DRAW NEEDED. HOSPITALIST MADE AWARE. PT TO TRANSFER TO ICU ON INSULIN DRIP AND BLOUS FOR LOW BP. REPORT GIVEN TO ALMA DELIA. PT EDACTED ABOUT TURNING OFF INSULING PUMP AND USING HOSPITAL MEDICATIONS FOR NOW.
--- NOTE | 2023-08-31 02:22 | NUR ---
PT ARRIVED FROM PCU AT 0335 2ND LITER BOLUS INFUSING. INSULIN DRIP STARTED AT 10 UNITS/HR. POC BG HI. MARKETING PROGRAMS MANAGER PLACED POWERGLIDE IN RIGHT UPPER ARM. NS TO INFUSE AT 200ML/HR AFTER BOLUS COMPLETED. PT A/O X4, PLEASANT AND COOPERATIVE. SR, NO ECTOPY, BP REMAINS LOW AT 88/44 (58). PT STATES NORMAL BP AROUND 100/60. RT PLACED ON CPAP FOR SLEEP APNEA. PT WEARS CPAP AT HOME. NO NAUSEA CURRENTLY, PT REPORTS NAUSEA EARLIER TODAY, RELIEVED WITH ANTIEMETIC. LAST BM REPORTED BY PT TO BE 15 AROUND NOON. VOIDS USING BSC, UA NEEDS TO BE COLLECTED. SKIN INTACT. LARGE SCAR DOWN LOW BACK, PT STATES SHE HAS HAD 3 SURGERIES, 2 FOR BACK/SPINE ISSUES, 1 TO DONATE HER KIDNEY. DAUGHTER DIVYA IS POA, PT WILL CONTACT DAUGHTER ABOUT TRANSFER IN THE AM. POC ONGOING.
[2023-08-31 02:51] LABS: BASOPHILS ABSOLUTE AUTO 0.02 K/mm3 (0.00-0.23); BASOPHILS PERCENT AUTO 0 % (0-2); EOSINOPHILS ABSOLUTE AUTO 0.01 K/mm3 (0.00-0.68); EOSINOPHILS PERCENT AUTO 0 % (0-6); Hematocrit 30.4 % (33.0-51.0); Hemoglobin 10.1 g/dL (11.5-16.0); IMMATURE GRAN ABSOLUTE AUTO 0.05 K/mm3 (0.00-0.10); IMMATURE GRAN PERCENT AUTO 0 % (0-1); LYMPHOCYTES ABSOLUTE AUTO 1.15 K/mm3 (0.84-5.20); LYMPHOCYTES PERCENT AUTO 10 % (21-46); MONOCYTES ABSOLUTE AUTO 0.48 K/mm3 (0.16-1.47); MONOCYTES PERCENT AUTO 4 % (4-13); Mean Corpuscular HGB 30.7 pg (26.0-34.0); Mean Corpuscular HGB Conc 33.2 g/dL (31.5-36.5); Mean Corpuscular Volume 92 fL (80-100); Mean Platelet Volume 11.2 fL (9.1-12.4); NEUTROPHILS ABSOLUTE AUTO 9.97 K/mm3 (1.96-9.15); NEUTROPHILS PERCENT AUTO 85 % (41-73); Platelet Count 151 K/mm3 (150-400); RDW Coefficient Variation 13.2 % (11.7-14.2); RDW Standard Deviation 45.1 fL (35.1-46.3); Red Blood Cell Count 3.29 M/mm3 (3.80-5.20); White Blood Cell Count 11.68 K/mm3 (4.00-11.30)
[2023-08-31 03:26] LABS: Bun/Creatinine Ratio 25.8 (12.0-20.0); Calcium, Blood 6.8 mg/dL (8.5-10.1); Creatinine, Blood 1.24 mg/dL (0.40-1.00); Potassium, Blood 4.7 mmol/L (3.5-5.5)
[2023-08-31 04:05] LABS: Glucose, Blood 568 mg/dL (70-99)
--- NOTE | 2023-08-31 06:27 | NUR ---
SHIFT SUMMARY PT A/O, PLEASANT AND COOPERATIVE. SR W/BBB, VERIFIED WITH EKG. MD REVIEWED EKG RESULTS. BP GOAL MAP > 65, LEVO TITRATED TO EFFECT. LUNGS CTA, ON ROOM AIR. DENIES NAUSEA, NO BM. HAS NOT VOIDED SINCE ADMIT TO ICU. HAD REPORTED VOID ON BSC IMMEDIATELY PRIOR TO TRANSFER. SKIN INTACT. PIV TO LEFT HAND WITH LEVOPHED INFUSING. CHECKED IV EVERY 45 MIN TO ENSURE PATENT IV AND MONITOR FOR S/S INFILTRATION. NONE NOTED. PT DENIES ANY PAIN/DISCOMFORT. NO FAMILY AT BEDSIDE. POC ONGOING.
[2023-08-31 07:27] LABS: Bun/Creatinine Ratio 25.4 (12.0-20.0); Creatinine, Blood 1.38 mg/dL (0.40-1.00); Potassium, Blood 4.3 mmol/L (3.5-5.5)
--- NOTE | 2023-08-31 12:54 | NUR ---
CARE ASSUMED OF PT AT 0700. PT SLEEPING, AWAKENS TO VOICE, OX3, DROWSY. PT INITIALLY ON INITIALLY ON 5MCG OF LEVOPHED VIA PERIPHERAL LEFT AC TO KEEP MAP >65. LEVOPHED TITRATED UP TO 8MCG. PT C/O TENDERNESS TO LEFT AC; AC SITE WNL, NO SWELLING, NO REDNESS, FLUSHED W/O DIFFICULTY, PULLED BACK BLOOD. LEVOPHED TEMP. CHANGED TO POWERGLIDE SITE WHILE PICC LINE PLACED TO KITTY. PT VIANEY PICC PROCEDURE WELL. LEVOPHED HAS BEEN DECREASED TO 6MCG. PT INITIALLY ON 6UNITS INSULIN AND TITRATED DOWN TO 4UNITS. BS AROUND 200; DR SUMMERS CALLED AND UPDATED. (DR SUMMERS ALSO AT BEDSIDE THIS AM TO SEE PT). ORDERS RECEIVED TO TRANSITION PT OFF OFF INSULIN GTT AND ON TO SQ INSULIN. 20UNITS LONG ACTING GIVEN ALONG W MED SS. ADA DIET GIVEN; PT VIANEY WELL. INSULIN GTT STOPPED AT 1300.
[2023-08-31 13:28] LABS: Source, Urine Voided
[2023-08-31 13:33] LABS: Bilirubin, Urine Neg (Neg); Blood, Urine Neg (Neg); Glucose Qualitative, Urine 4+ (Neg); Ketones, Urine Neg (Neg); Leukocyte Esterase, Urine 1+ (Neg); Nitrite, Urine Neg (Neg); Protein, Urine Neg (Neg); Urobilinogen, Urine NORM (Normal)
[2023-08-31 13:52] LABS: Appearance, Urine Clear (Clear); Color, Urine Pale Yellow (P-Yellow)
[2023-08-31 13:53] LABS: Bacteria Few /hpf; Red Blood Cells, Urine 0-2 /hpf (0-2); Squamous Epithelial Cells Few /hpf (Few)
--- NOTE | 2023-08-31 18:25 | NUR ---
PT TRANSITIONED OFF INSULIN GTT TODAY TO SQ INSULIN. PT TOLERATING MEALS. BS STABLE. LEVOPHED WAS TITRATED OFF AT 1800, MAP REMAINS >65. NS AT 200CC/HR. DR SUMMERS WAS IN TO CHECK ON PT THIS AFTERNOON. PT STATES SHE IS FEELING "MUCH BETTER" AND IS LOOKING FORWARD TO GOING HOME.
--- NOTE | 2023-08-31 19:43 | NUR ---
ASSUMED CARE OF PT AT 1900 BEDSIDE REPORT RECEIVED FROM DMITRY JULIEN. PT IS A/O, PLEASANT AND COOPERATIVE. STATES SHE "FEELS BETTER". SR, BP HAS BEEN STABLE OFF LEVOPHED AND IVF. PT STATES HER SKIN FEELS PUFFY AFTER ALL THE FLUIDS. LUNGS CTA, O2 SAT 96% ON ROOM AIR. DENIES NAUSEA BUT DOES C/O OF LEFT UPPER QUADRANT ABDMONAL DISCOMFORT. DISCUSSED WITH DR. MORROW AT BEDSIDE, PLAN IS TO CONTINUE TO MONITOR. LAST BM WAS YESTERDAY 08/30 PRIOR TO COMING INTO THE HOSPITAL. OOB TO BSC TO VOID. STANDBY ASSIST ONLY. EDUCATED PT ON IMPORTANCE OF CALLING FOR ASSIST TO BSC/BED/CHAIR FOR SAFETY. SKIN INTACT. PICC TO RIGHT UPPER ARM, PIV TO LEFT AC. ALL SL AT THIS TIME. NO FAMILY AT BEDSIDE. PT ASSISTED TO SIT IN THE CHAIR AFTER TOILETING. POC ONGOING.
[2023-09-01] VITALS (14 sets, daily range): BP systolic 95–180; BP diastolic 60–86
--- NOTE | 2023-09-01 04:36 | NUR ---
SHIFT SUMMARY PT A/O, PLEASANT AND APPRECIATIVE OF CARE. SR W/BBB, BP MAP > 65, OFF LEVOPHED. O2 SAT 98% ON ROOM AIR. LUNGS CTA. DENIES NAUSEA, BS HYPERACTIVE. PT C/O LEFT UPPER QUADRANT ABDOMINAL PAIN. STATES IT IS WORSENING IN SEVERITY, DR. MORROW NOTIFIED. PT STATES SHE FEELS SHE NEEDS TO HAVE A BM. HAS A HISTORY OF CONSTIPATION, LAST BM 08/30. ORDER FOR FLEETS ENEMA RECEIVED, ADMINISTERED WITH GOOD RESULT. PT HAD BM X2 WITH IMPROVEMENT IN ABD PAIN. STATES THE ABD DISCOMFORT HAS EASED BUT IS STILL PRESENT. SHOWER PROVIDED PER PT REQUEST. LINNENS CHANGED AND ASSISTED BACK TO BED AFTER SHOWER. CPAP PLACED AND PT ABLE TO GO TO SLEEP. MONITORING BG EVERY 4 HOURS, COVERED WITH MED SLIDING SCALE. PICC TO LEFT UPPER ARM, PG TO RIGHT UPPPER ARM, ALL SL, ALL FLUSH WELL. NO FAMILY AT BEDSIDE.
[2023-09-01 05:44] LABS: BASOPHILS ABSOLUTE AUTO 0.04 K/mm3 (0.00-0.23); BASOPHILS PERCENT AUTO 1 % (0-2); EOSINOPHILS ABSOLUTE AUTO 0.22 K/mm3 (0.00-0.68); EOSINOPHILS PERCENT AUTO 3 % (0-6); Hematocrit 29.5 % (33.0-51.0); Hemoglobin 9.6 g/dL (11.5-16.0); IMMATURE GRAN ABSOLUTE AUTO 0.01 K/mm3 (0.00-0.10); IMMATURE GRAN PERCENT AUTO 0 % (0-1); LYMPHOCYTES ABSOLUTE AUTO 2.21 K/mm3 (0.84-5.20); LYMPHOCYTES PERCENT AUTO 33 % (21-46); MONOCYTES ABSOLUTE AUTO 0.46 K/mm3 (0.16-1.47); MONOCYTES PERCENT AUTO 7 % (4-13); Mean Corpuscular HGB 29.9 pg (26.0-34.0); Mean Corpuscular HGB Conc 32.5 g/dL (31.5-36.5); Mean Corpuscular Volume 92 fL (80-100); NEUTROPHILS ABSOLUTE AUTO 3.82 K/mm3 (1.96-9.15); NEUTROPHILS PERCENT AUTO 57 % (41-73); Platelet Count 181 K/mm3 (150-400); RDW Coefficient Variation 13.9 % (11.7-14.2); RDW Standard Deviation 47.1 fL (35.1-46.3); Red Blood Cell Count 3.21 M/mm3 (3.80-5.20); White Blood Cell Count 6.76 K/mm3 (4.00-11.30)
[2023-09-01 06:10] LABS: Albumin, Blood 2.9 g/dL (3.4-5.0); Bilirubin, Total 0.3 mg/dL (0.1-1.0); Bun/Creatinine Ratio 22.9 (12.0-20.0); Calcium, Blood 7.7 mg/dL (8.5-10.1); Creatinine, Blood 1.09 mg/dL (0.40-1.00); Globulin, Blood 2.8 g/dL (2.2-4.0); Potassium, Blood 4.4 mmol/L (3.5-5.5); Total Protein, Blood 5.7 g/dL (6.4-8.2)
--- NOTE | 2023-09-01 08:08 | NUR ---
CARE OF PT ASSUMED AT 0700. PT SLEEPING IN BED W HOME CPAP. PT AWAKENS TO VOICE, OX3. C/O DISCOMFORT 3/10 TO LUQ; THE PAIN WAS WORSE LAST NIGHT AND RELIEVED SOME WITH BM'S PER PT. PT DENIES NAUSEA AND IS TOLERATING PO FOOD/FLUIDS. PT WOULD LIKE TO TRY AND USE HER HOME INSULIN PUMP AGAIN, SHE STATES SHE DOESNT THINK THE PUMP HAS AN ISSUE/OR IS THE PROBLEM. BS 169 COVERED W 2UNITS SQ. BP STABLE; BP MEDS HELD UNTIL DISCUSSED W LEVOPHED WAS STOPPED LAST NIGHT AT 1800. PT IS SALINE LOCKED AND NOT RECEIVING IV FLUIDS. DR SUMMERS AT BEDSIDE NOW AND GIVEN FULL UPDATE.
--- NOTE | 2023-09-01 08:20 | NUR ---
CT OF ABD ORDERED FOR ABD PAIN. PT MAY BE DC'D HOME TODAY.
--- NOTE | 2023-09-01 10:44 | NUR ---
DR SUMMERS CALLED REGARDING HTN; LISINOPRIL GIVEN, AWAITING FOR ATENOLOL FROM PHARMACY. WILL CALL DR MELINA Payne PRE LUNCH CBG IF HIGH. AWAITING CT RESULTS. PT'S ABD IS DISTENDED, PT PASSED SMALL BM.
--- NOTE | 2023-09-01 13:43 | NUR ---
CT RESULTS AVAILABLE, DR SUMMERS NOTIFIED AND IS REVIEWING CT NOW. PT HAS DRY NON-PRODUCTIVE HACKING COUGH. LUNGS CLEAR BUT SATS 90-91%. LASIX 20MG PO ORDERED. DR SUMMERS AT BEDSIDE NOW.
--- NOTE | 2023-09-01 14:55 | NUR ---
ORDERS RECIEVED TO DISCHARGE PATIENT TO HOME. VERBAL AND WRITTEN DC INSTRUCTIONS GIVEN TO PATIENT WITH CLEAR UNDERSTANDING. PT UNDERSTANDS SHE NEEDS TO CALL PCP OFFICE IN AM TO SCHEDULE FOLLOW UP APPOINTMENT W JALEEL CASEY NP AND DR OWEN. PATIENT STATES SHE HAS ALL OF HER HOME MEDICATIONS AVAILABLE AT HOME AND DOES NOT REQUIRE A PRESCRIPTION. PT PLANS ON RESTARTING HOME INSULIN PUMP UPON DISCHARGE; THIS WAS DISCUSSED WITH DR SUMMERS. PICC LINE AND POWERGLIDE DC'D W/O DIFFICULTY. PO LASIX GIVEN; PT HAS VOIDED RECENTLY, SATS IMPROVING 93-94%, BP IMPROVING WELL. PATIENT UNDERSTANDS THAT SHE SHOULD CALL HER DOCTOR, COME INTO ER, OR CALL 911 FOR WORSENING SYMPTOMS (SYMPTOMS THAT BROUGHT HER IN OR NEW SHORTNESS OF BREATH, WORSENING ABD PAIN).
--- NOTE | 2023-09-01 15:33 | NUR ---
PT DISCHARGED HOME IN CARE OF GRAND-DAUGHTER AT 1533. PT ESCORTED TO CAR VIA WHEELCHAIR.
== END 2023-09-01 15:39 | disposition home or self-care (01) | DRG 638 ==
LOC: ER 14:44 → PCU 14:45 → ICUE 14:45 → PCU 19:56 → ICUE 08-31 01:35
PROVIDERS: Emergency Medicine; Student in an Organized Health Care Education/Training Program; ADMIT Internal Medicine
PROC: 3E033XZ Introduction of Vasopressor into Peripheral Vein, Percutaneous Approach (ICD-10-PCS; principal; 2023-08-31)
DX: E10.69 Type 1 diabetes mellitus with other specified complication (principal); E87.0 Hyperosmolality and hypernatremia; I13.0 Hypertensive heart and chronic kidney disease with heart failure and stage 1 through stage 4 chronic kidney disease, or unspecified chronic kidney disease; I50.32 Chronic diastolic (congestive) heart failure; E87.1 Hypo-osmolality and hyponatremia; E10.65 Type 1 diabetes mellitus with hyperglycemia; I95.9 Hypotension, unspecified; E03.9 Hypothyroidism, unspecified; G47.33 Obstructive sleep apnea (adult) (pediatric); E10.22 Type 1 diabetes mellitus with diabetic chronic kidney disease; N18.2 Chronic kidney disease, stage 2 (mild); K76.0 Fatty (change of) liver, not elsewhere classified; M79.7 Fibromyalgia; E86.0 Dehydration; E78.5 Hyperlipidemia, unspecified; K21.9 Gastro-esophageal reflux disease without esophagitis; Z11.52 Encounter for screening for COVID-19; Z88.8 Allergy status to other drugs, medicaments and biological substances; Z88.2 Allergy status to sulfonamides; Z88.5 Allergy status to narcotic agent; Z91.040 Latex allergy status; Z79.899 Other long term (current) drug therapy; Z79.4 Long term (current) use of insulin; Z98.890 Other specified postprocedural states; Z90.5 Acquired absence of kidney; Z90.710 Acquired absence of both cervix and uterus
CPT/HCPCS: 0241U; 36415; 36569; 71045; 74177; 80048; 80053; 81001; 82803; 82947; 83036; 83605; 83930; 84443; 84484; 85025; 87086; 93005; 93010; 94660; 94762; 96361; 96365; 96366; 96372; 96374; 96375; 99285-25; A9270; C1751; C9113; G0378; J0696; J1650; J1815; J2405; J3480; J7030; J7060; Q9967

== ENCOUNTER 2024-12-28 12:34 | Emergency (ER) | payer MEDICARE, OTHER ==
[~2024-12-28] VITALS: Ht 157.5 cm; Wt 68.0 kg
[~2024-12-28 12:34] MED LIST changes: +INSULANPEN SC; +INSULIN LI100 UNIT/6 SC; +OZEMPIC0.25 MG/02 SQ
[2024-12-28] MEDS ORDERED: Ondansetron HCl 2 MG / ML 2ML Vial IV ONE (13:30)
[2024-12-28] MEDS ORDERED: NS 1,000 ML IV SCH (13:30)
[2024-12-28 14:01] LABS: Source, Urine Clean Catch
[2024-12-28 14:05] LABS: Appearance, Urine Clear (Clear); Bilirubin, Urine Neg (Neg); Blood, Urine Neg (Neg); Glucose Qualitative, Urine 4+ (Neg); Ketones, Urine 2+ (Neg); Leukocyte Esterase, Urine Neg (Neg); Nitrite, Urine Neg (Neg); Protein, Urine 1+ (Neg); Specific Gravity, Urine 1.005 (1.003-1.022); Urobilinogen, Urine NORM (Normal)
[2024-12-28 14:06] LABS: Color, Urine Pale Yellow (P-Yellow)
[2024-12-28 14:24] LABS: Base Excess Venous -2.9 mmol/L; Bicarbonate Venous 21.9 mmol/L (24.0-30.0); PCO2 Venous 42.5 mmHg (38-42); pH Blood Venous 7.34 (7.34-7.37)
[2024-12-28 14:33] LABS: BASOPHILS ABSOLUTE AUTO 0.03 K/mm3 (0.00-0.23); BASOPHILS PERCENT AUTO 0 % (0-2); EOSINOPHILS ABSOLUTE AUTO 0.03 K/mm3 (0.00-0.68); EOSINOPHILS PERCENT AUTO 0 % (0-6); Hematocrit 35.2 % (33.0-51.0); Hemoglobin 11.7 g/dL (11.5-16.0); IMMATURE GRAN ABSOLUTE AUTO 0.06 K/mm3 (0.00-0.10); IMMATURE GRAN PERCENT AUTO 1 % (0-1); LYMPHOCYTES ABSOLUTE AUTO 0.98 K/mm3 (0.84-5.20); LYMPHOCYTES PERCENT AUTO 15 % (21-46); MONOCYTES ABSOLUTE AUTO 0.35 K/mm3 (0.16-1.47); MONOCYTES PERCENT AUTO 5 % (4-13); Mean Corpuscular HGB 30.2 pg (26.0-34.0); Mean Corpuscular HGB Conc 33.2 g/dL (31.5-36.5); Mean Corpuscular Volume 91 fL (80-100); Mean Platelet Volume 10.8 fL (9.1-12.4); NEUTROPHILS ABSOLUTE AUTO 5.24 K/mm3 (1.96-9.15); NEUTROPHILS PERCENT AUTO 79 % (41-73); Platelet Count 191 K/mm3 (150-400); RDW Coefficient Variation 12.8 % (11.7-14.2); RDW Standard Deviation 42.3 fL (35.1-46.3); Red Blood Cell Count 3.87 M/mm3 (3.80-5.20); White Blood Cell Count 6.69 K/mm3 (4.00-11.30)
[2024-12-28 15:32] LABS: Albumin, Blood 3.7 g/dL (3.4-5.0); Albumin/Globulin Ratio 1.1 (0.8-1.8); Bilirubin, Total 0.8 mg/dL (0.1-1.0); Bun/Creatinine Ratio 24.8 (12.0-20.0); Calcium, Blood 9.1 mg/dL (8.5-10.1); Creatinine, Blood 0.93 mg/dL (0.40-1.00); Globulin, Blood 3.4 g/dL (2.2-4.0); Potassium, Blood 5.1 mmol/L (3.5-5.5); Total Protein, Blood 7.1 g/dL (6.4-8.2)
[2024-12-28 15:35] LABS: Beta-hydroxybutyrate 21.5 mg/dL (0.2-2.8)
[2024-12-28] MEDS ORDERED: Insulin Human Lispro 100 Units/ML 3ML Syringe SC ONE (15:45)
[2024-12-28 16:55] VITALS: BP 113/86
== END 2024-12-28 18:00 | disposition home or self-care (01) ==
LOC: ER 12:34
PROVIDERS: Student in an Organized Health Care Education/Training Program
DX: E10.65 Type 1 diabetes mellitus with hyperglycemia (principal); I13.0 Hypertensive heart and chronic kidney disease with heart failure and stage 1 through stage 4 chronic kidney disease, or unspecified chronic kidney disease; E10.22 Type 1 diabetes mellitus with diabetic chronic kidney disease; I50.9 Heart failure, unspecified; N18.30 Chronic kidney disease, stage 3 unspecified; Z79.890 Hormone replacement therapy; Z79.899 Other long term (current) drug therapy; Z79.4 Long term (current) use of insulin; Z88.8 Allergy status to other drugs, medicaments and biological substances; Z88.2 Allergy status to sulfonamides; Z88.5 Allergy status to narcotic agent; Z91.040 Latex allergy status
CPT/HCPCS: 80053; 82010; 82803; 82947; 83930; 85025; 93005; 93010; 96361; 96374; 99285-25; J1815; J2405; J7030